=== PATIENT | male | born 1995 | race Caucasian/White ===

== ENCOUNTER 2018-09-12 13:27 | Emergency (ER) | payer SELFPAY ==
[~2018-09-12] VITALS: Ht 170.2 cm; Wt 99.8 kg
[2018-09-12 13:33] VITALS: BP 160/108
== END 2018-09-12 16:40 | disposition home or self-care (01) ==
LOC: ER 13:30
DX: F10.129 Alcohol abuse with intoxication, unspecified (principal); F19.10 Other psychoactive substance abuse, uncomplicated; Z59.0 Homelessness; Y90.9 Presence of alcohol in blood, level not specified